=== PATIENT | male | born 1965 | race Caucasian/White ===

== ENCOUNTER 2017-08-04 18:34 | Inpatient (IN) | payer OTHER ==
[~2017-08-04] VITALS: Ht 193 cm; Wt 134.0 kg
[2017-08-04] MEDS ORDERED: PROMETHAZINE 25 MG/ML, 1ML ONE (19:13)
[2017-08-04] MEDS ORDERED: PROMETHAZINE 25 MG/ML, 1ML IM ONE (19:30)
[2017-08-04] MEDS ORDERED: SODIUM CHLORIDE FLUSH 10ML SYR IVF ONE (19:30)
[2017-08-04] MEDS ORDERED: SODIUM CHLORIDE 0.9% 1,000ML IVBOLUS ONE (19:30)
[2017-08-04 19:50] LABS: HEMATOCRIT 52.4 % (39.2-51.8); HEMOGLOBIN 17.7 g/dL (13.7-18.0); WHITE BLOOD COUNT 18.1 x10^3/uL (3.4-10)
[2017-08-04] MEDS ORDERED: ONDANSETRON 2MG/ML, 2ML ONE (19:53)
[2017-08-04] MEDS ORDERED: ONDANSETRON 2MG/ML, 2ML IVPush ONE (20:00)
[2017-08-04 20:01] LABS: BLOOD UREA NITROGEN 20 mg/dL (7-18)
[2017-08-04 20:02] LABS: ASPARTATE AMINO TRANSFERASE 13 U/L (15-37)
[2017-08-04] MEDS ORDERED: METH10TA4 PO (21:23)
[2017-08-04] MEDS ORDERED: LISI-167 PO (21:23)
[2017-08-04] MEDS ORDERED: TRAM50TA2 PO (21:23)
[2017-08-04] MEDS ORDERED: MAALOX/HYOSCYAMINE/LIDOCAINE 45 ML BTL ONE (21:27)
[2017-08-04] MEDS ORDERED: DIAZEPAM 5 MG/ML, 2ML IVPush ONE (21:30)
[2017-08-04] MEDS ORDERED: MAALOX/HYOSCYAMINE/LIDOCAINE 45 ML BTL PO ONE (21:30)
[2017-08-04] MEDS ORDERED: SODIUM CHLORIDE 0.9%, 500ML IVBOLUS ONE (21:30)
[2017-08-04] MEDS ORDERED: DIAZEPAM 5 MG/ML, 10ML VIAL IVPush ONE (22:00)
[2017-08-04] MEDS ORDERED: LABETALOL 5MG/ML, 20ML IVPush ONE (23:30)
[2017-08-04] MEDS ORDERED: METOCLOPRAMIDE 5 MG/ML, 2ML IVPush ONE (23:30)
[2017-08-04] MEDS ORDERED: ENOXAPARIN 150 MG/ML SQ ONE ×2 (23:30)
[2017-08-04] MEDS ORDERED: ENOXAPARIN 80 MG/0.8 ML ONE (23:36)
[2017-08-04] MEDS ORDERED: METOCLOPRAMIDE 5 MG/ML, 2ML ONE (23:36)
[2017-08-04] MEDS ORDERED: ENOXAPARIN 60 MG/0.6 ML ONE (23:36)
[2017-08-04] MEDS ORDERED: LABETALOL 5MG/ML, 20ML ONE (23:36)
[2017-08-04 23:45] LABS: IS PT STATUS REG ER OR PRE ER? YES
[2017-08-05] MEDS ORDERED: BISACODYL 10 MG SUPP PR PRN
[2017-08-05] MEDS ORDERED: POLYETHYLENE GLYCOL 17 GM PACKET PO PRN
[2017-08-05] MEDS ORDERED: ACETAMINOPHEN 325 MG TABLET PO PRN
[2017-08-05 01:00] VITALS: BP 159/106
[2017-08-05] MEDS: SODIUM CHLORIDE 0.9% 1,000 ML IV SCH ×4 (01:20→23:58)
[2017-08-05 01:21] VITALS: BP 140/102
[2017-08-05 01:27] VITALS: BP 145/99
[2017-08-05 05:19] LABS: HEMATOCRIT 50.3 % (39.2-51.8); HEMOGLOBIN 17.3 g/dL (13.7-18.0); WHITE BLOOD COUNT 20.3 x10^3/uL (3.4-10)
[2017-08-05 05:33] LABS: ASPARTATE AMINO TRANSFERASE 17 U/L (15-37); BLOOD UREA NITROGEN 22 mg/dL (7-18)
[2017-08-05 05:34] LABS: IS PT STATUS REG ER OR PRE ER? NO
[2017-08-05] MEDS: ONDANSETRON 2MG/ML, 2ML IVPush PRN ×3 (09:00→21:06)
[2017-08-05] MEDS ORDERED: hydrALAzine 20 MG/ML, 1ML ONE (09:12)
[2017-08-05 09:15] VITALS: BP 155/109
[2017-08-05] MEDS ORDERED: hydrALAzine 20 MG/ML, 1ML IV PRN (09:30)
[2017-08-05] MEDS ORDERED: DILTIAZEM 5 MG/ML, 5ML IVPush ONE (09:30)
[2017-08-05] MEDS: SENNA/DOCUSATE TABLET PO SCH (09:34)
[2017-08-05] MEDS: METHYLPHENIDATE 10 MG TABLET PO SCH (09:34)
[2017-08-05] MEDS: LISINOPRIL 10 MG TABLET PO SCH (09:34)
[2017-08-05 11:26] LABS: HIV 1&2 ANTIBODY SCREEN Nonreactive (Nonreactive); HIV-1 p24 ANTIGEN Nonreactive (Nonreactive)
[2017-08-05 11:29] LABS: IS PT STATUS REG ER OR PRE ER? NO
[2017-08-05] MEDS: DILTIAZEM 125 MG in SODIUM CHLORIDE 0.9% 100 ML IV PRN (11:40)
[2017-08-05] MEDS: ENOXAPARIN 120MG/0.8ML SQ SCH ×2 (11:53→23:59)
[2017-08-05] MEDS ORDERED: PROMETHAZINE 25 MG/ML, 1ML ONE (12:51)
[2017-08-05] MEDS: PROMETHAZINE 25 MG/ML, 1ML IV PRN ×3 (12:53→23:58)
[2017-08-05 17:22] VITALS: BP 150/99
[2017-08-05] MEDS: morphine SULFATE 10 MG/ML, 1ML IVPush PRN ×3 (17:46→23:58)
[2017-08-05 19:20] VITALS: BP 136/87
[2017-08-05] MEDS: DIPHENHYDRAMINE 50 MG CAPSULE PO PRN (23:59)
[2017-08-06] MEDS: morphine SULFATE 10 MG/ML, 1ML IVPush PRN ×5 (03:16→20:54)
[2017-08-06] MEDS: ONDANSETRON 2MG/ML, 2ML IVPush PRN ×3 (03:16→20:53)
[2017-08-06] MEDS: DILTIAZEM 125 MG in SODIUM CHLORIDE 0.9% 100 ML IV PRN (03:36)
[2017-08-06 03:45] VITALS: BP 121/82
[2017-08-06 05:13] LABS: HEMATOCRIT 46.2 % (39.2-51.8); HEMOGLOBIN 15.6 g/dL (13.7-18.0); WHITE BLOOD COUNT 17.3 x10^3/uL (3.4-10)
[2017-08-06 05:22] LABS: BLOOD UREA NITROGEN 19 mg/dL (7-18)
[2017-08-06 05:35] LABS: ASPARTATE AMINO TRANSFERASE 20 U/L (15-37)
[2017-08-06] MEDS: PROMETHAZINE 25 MG/ML, 1ML IV PRN ×2 (07:42→16:03)
[2017-08-06] MEDS: SODIUM CHLORIDE 0.9% 1,000 ML IV SCH ×2 (07:43→18:16)
[2017-08-06 07:56] VITALS: BP 141/106
[2017-08-06] MEDS: LISINOPRIL 10 MG TABLET PO SCH (10:52)
[2017-08-06] MEDS: SENNA/DOCUSATE TABLET PO SCH (10:52)
[2017-08-06] MEDS: DILTIAZEM 30 MG TABLET PO SCH ×3 (10:52→20:53)
[2017-08-06] MEDS: ENOXAPARIN 120MG/0.8ML SQ SCH (10:53)
[2017-08-06] MEDS: METHYLPHENIDATE 10 MG TABLET PO SCH (10:53)
[2017-08-06 16:16] VITALS: BP 144/87
[2017-08-06] MEDS ORDERED: MAGNESIUM SULFATE 1 GM in SODIUM CHLORIDE 0.9% 50 ML IV ONE (17:00)
[2017-08-06 20:01] VITALS: BP 123/81
[2017-08-07] MEDS: morphine SULFATE 10 MG/ML, 1ML IVPush PRN ×5 (00:31→23:30)
[2017-08-07] MEDS: DIPHENHYDRAMINE 50 MG CAPSULE PO PRN (00:31)
[2017-08-07] MEDS: ENOXAPARIN 120MG/0.8ML SQ SCH ×2 (00:31→12:39)
[2017-08-07] MEDS: PROMETHAZINE 25 MG/ML, 1ML IV PRN ×2 (00:31→06:37)
[2017-08-07 00:34] VITALS: BP 138/94
[2017-08-07] MEDS: DILTIAZEM 30 MG TABLET PO SCH (02:54)
[2017-08-07] MEDS: SODIUM CHLORIDE 0.9% 1,000 ML IV SCH ×2 (03:34→10:25)
[2017-08-07] MEDS: ONDANSETRON 2MG/ML, 2ML IVPush PRN ×3 (03:35→22:17)
[2017-08-07 06:00] LABS: BLOOD UREA NITROGEN 15 mg/dL (7-18)
[2017-08-07 06:23] LABS: HEMATOCRIT 45.4 % (39.2-51.8); HEMOGLOBIN 15.4 g/dL (13.7-18.0); WHITE BLOOD COUNT 12.5 x10^3/uL (3.4-10)
[2017-08-07] MEDS: SENNA/DOCUSATE TABLET PO SCH (09:00)
[2017-08-07 09:48] VITALS: BP 146/98
[2017-08-07] MEDS: LISINOPRIL 10 MG TABLET PO SCH (09:52)
[2017-08-07] MEDS: POTASSIUM CHLORIDE 20 MEQ TAB.ER.PRT PO SCH ×2 (10:02→17:03)
[2017-08-07] MEDS: METHYLPHENIDATE 10 MG TABLET PO SCH (10:17)
[2017-08-07] MEDS: DILTIAZEM CD 180 MG CAP.ER.24H PO SCH (10:39)
[2017-08-07 15:30] VITALS: BP 143/84
[2017-08-07] MEDS ORDERED: OXYcodone IR 5MG TABLET PO PRN (17:00)
[2017-08-07 17:35] VITALS: BP 153/93
[2017-08-07 20:05] VITALS: BP 124/88
[2017-08-07] MEDS: APIXABAN 5 MG TABLET PO SCH (20:30)
[2017-08-07] MEDS: PROMETHAZINE 25 MG/ML, 1ML IM PRN (23:05)
[2017-08-08 03:32] VITALS: BP 151/99
[2017-08-08] MEDS: morphine SULFATE 10 MG/ML, 1ML IVPush PRN ×2 (03:41→09:00)
[2017-08-08] MEDS: ONDANSETRON 2MG/ML, 2ML IVPush PRN ×2 (04:11→16:57)
[2017-08-08 05:37] LABS: HEMATOCRIT 45.4 % (39.2-51.8); HEMOGLOBIN 15.5 g/dL (13.7-18.0); WHITE BLOOD COUNT 10.6 x10^3/uL (3.4-10)
[2017-08-08 05:40] LABS: BLOOD UREA NITROGEN 12 mg/dL (7-18)
[2017-08-08 08:54] VITALS: BP_SYST 154; BP_SYST 155; BP_DIAS 106; BP_DIAS 121
[2017-08-08] MEDS: PROMETHAZINE 25 MG/ML, 1ML IM PRN (08:59)
[2017-08-08] MEDS: SENNA/DOCUSATE TABLET PO SCH (09:00)
[2017-08-08] MEDS ORDERED: D5%-0.45NACL+KCL 20MEQ 1,000 ML IV SCH (09:30)
[2017-08-08] MEDS: LISINOPRIL 10 MG TABLET PO SCH (09:53)
[2017-08-08] MEDS: APIXABAN 5 MG TABLET PO SCH (09:54)
[2017-08-08] MEDS: DILTIAZEM CD 180 MG CAP.ER.24H PO SCH (09:54)
[2017-08-08] MEDS: METHYLPHENIDATE 10 MG TABLET PO SCH (09:55)
[2017-08-08] MEDS ORDERED: hydrALAzine 20 MG/ML, 1ML IV PRN (11:00)
[2017-08-08 12:04] VITALS: BP 134/90
[2017-08-08] MEDS ORDERED: OMEPRAZOLE 20 MG CAPSULE.DR PO SCH (12:30)
[2017-08-08 15:01] VITALS: BP 135/88
[2017-08-08] MEDS ORDERED: DILTIAZEM 120 MG TABLET PO SCH (21:00)
== END 2017-08-08 17:36 | disposition short-term general hospital (02) | DRG 309 ==
LOC: ED 22:16 → EDIP 22:53 → 5SO 08-05 01:19
PROVIDERS: ADMIT Surgery; ATTEND Surgery
DX: I48.91 Unspecified atrial fibrillation (principal); N17.9 Acute kidney failure, unspecified; D68.59 Other primary thrombophilia; E83.42 Hypomagnesemia; R13.10 Dysphagia, unspecified; I48.92 Unspecified atrial flutter; E87.6 Hypokalemia; F17.210 Nicotine dependence, cigarettes, uncomplicated; F90.9 Attention-deficit hyperactivity disorder, unspecified type; I10 Essential (primary) hypertension; E66.9 Obesity, unspecified; K21.9 Gastro-esophageal reflux disease without esophagitis; K44.9 Diaphragmatic hernia without obstruction or gangrene; D72.829 Elevated white blood cell count, unspecified; R11.2 Nausea with vomiting, unspecified; K80.20 Calculus of gallbladder without cholecystitis without obstruction; Z82.3 Family history of stroke; Z83.3 Family history of diabetes mellitus; Z68.36 Body mass index [BMI] 36.0-36.9, adult; Z88.0 Allergy status to penicillin; Z88.7 Allergy status to serum and vaccine; Z91.041 Radiographic dye allergy status
CPT/HCPCS: 36415; 71020; 74176; 76700; 80048; 80053; 80074; 80076; 81003; 82140; 82962; 83690; 83735; 84100; 84439; 84443; 84484; 85025; 85520; 85610; 85651; 86141; 86703; 87899; 93005; 93306; 96361; 96372; 96374; 96375; J1650; J2405; J2550; J3360; J3475; G0435; J0360; J2270; J2765; J3480; J7030; J7040